=== PATIENT | male | born 1985 | race African-American/Black ===

== ENCOUNTER 2018-02-04 22:07 | Emergency (ER) | payer SELFPAY ==
[~2018-02-04] VITALS: Ht 180.3 cm; Wt 100.0 kg
[2018-02-05] MEDS ORDERED: DEXAMETHASONE 4MG/ML 1ML VIAL IM ONE (03:30)
[2018-02-05] MEDS ORDERED: KETOROLAC 60MG/2ML VIAL IM ONE (03:30)
[2018-02-05] MEDS ORDERED: ACETAMINOPHEN 500MG TABLET PO ONE (04:45)
[2018-02-05 05:39] VITALS: BP 126/79
== END 2018-02-05 05:40 | disposition home or self-care (01) ==
LOC: ER 22:41
DX: J02.9 Acute pharyngitis, unspecified (principal); R03.0 Elevated blood-pressure reading, without diagnosis of hypertension
CPT/HCPCS: 87070; 87430; 96372; 99284; J1100; J1885